=== PATIENT | male | born 1985 | race Caucasian/White ===

== ENCOUNTER 2017-11-10 07:03 | Emergency (ER) | payer BC ==
[2017-11-10 07:23] VITALS: BP 123/67; PULSE 77; TEMP 97.7; BMI 29.0
--- NOTE | 2017-11-10 07:40 | PDOC ---
History of Present Illness - General History Source: Patient Exam Limitations: No Limitations - History of Present Illness Initial Comments: 11/10/17 08:08 Patient is a 32-year-old male with no past medical history who presents emergency department today after being bit by a neighbor's dog this morning. Patient was bit on the left lower leg and presents with a 1 inch laceration. Bleeding is controlled. He states that the neighbor said the dog's are vaccinated however he is not friendly with the neighbor. Patient does not remember date of last tetanus shot. Denies fevers, chills, numbness and tingling to the extremity, weakness of the extremity. <Louisa Donovan - Last Filed: 11/11/17 11:51> <Sherrie Thomas - Last Filed: 11/15/17 21:54> - General Chief Complaint: Bite Stated Complaint: DOG BITE L LEG Time Seen by Provider: 11/10/17 07:37 Past History - Travel Traveled outside of the country in the last 30 days: No Close contact w/someone who was outside of country & ill: No - Past Medical History COPD: No - Suicide/Smoking/Psychosocial Hx Smoking Status: No Smoking History: Never smoked Have you smoked in the past 12 months: No Number of Cigarettes Smoked Daily: 0 Information on smoking cessation initiated: No Hx Alcohol Use: No Drug/Substance Use Hx: No Substance Use Type: None <Louisa Donovan - Last Filed: 11/11/17 11:51> <Sherrie Thomas - Last Filed: 11/15/17 21:54> - Past Medical History Allergies/Adverse Reactions: Allergies Allergy/AdvReac Type Severity Reaction Status Date / Time No Known Allergies Allergy Verified 11/13/17 17:25 Home Medications: Ambulatory Orders Amox-Tr/K Cl [Augmentin - 875Mg Tablet] 1 tab PO BID #14 tablet 11/10/17 Review of Systems - Review of Systems Able to Perform ROS?: Yes Is the patient limited Israeli proficient: No Constitutional: No: Chills, Fever, Weakness HEENTM: No: Eye Pain, Throat Pain, Throat Swelling, Mouth Swelling Respiratory: No: Cough, Shortness of Breath, Wheezing Cardiac (ROS): No: Chest Pain, Edema, Lightheadedness, Chest Tightness ABD/GI: No: Diarrhea, Nausea, Vomiting, Abdominal cramping Musculoskeletal: No: Joint Swelling, Muscle Pain, Muscle Weakness Integumentary: Yes: Other (laceration to L leg). No: Bruising, Erythema, Rash Neurological: No: Numbness, Paresthesia, Tingling, Weakness Hematologic/Lymphatic: No: Anemia, Easy Bleeding, Easy Bruising, Bleeding Diathesis All Other Systems: Reviewed and Negative <Louisa Donovan - Last Filed: 11/11/17 11:51> *Physical Exam - Vital Signs Last Vital Signs Temp Pulse Resp BP Pulse Ox 97.7 F 77 18 123/67 100 11/10/17 07:17 11/10/17 07:17 11/10/17 07:17 11/10/17 07:17 11/10/17 07:17 - Physical Exam General Appearance: Yes: Nourished, Appropriately Dressed. No: Apparent Distress HEENT: positive: EOMI, ARTHUR, Normal Voice Neck: positive: Trachea midline, Supple. negative: Tender, Rigid, Lymphadenopathy (R), Lymphadenopathy (L) Respiratory/Chest: positive: Lungs Clear, Normal Breath Sounds. negative: Respiratory Distress, Accessory Muscle Use Cardiovascular: positive: Regular Rhythm, Regular Rate, S1, S2 (present). negative: Murmur Extremity: positive: Normal Capillary Refill, Normal Range of Motion, Calf Tenderness (Medial tenderness d/t dog bite). negative: Tender Integumentary: positive: Normal Color, Dry, Warm, Other (1 inch laceration to L lower extremity) <Louisa Donovan - Last Filed: 11/11/17 11:51> - Vital Signs Last Vital Signs Temp Pulse Resp BP Pulse Ox 97.7 F 77 18 123/67 100 11/10/17 07:17 11/10/17 07:17 11/10/17 07:17 11/10/17 07:17 11/10/17 07:17 <Sherrie Thomas - Last Filed: 11/15/17 21:54> Procedures - Laceration/Wound Repair Left Anterior Leg Wound Length: 2.6 to 5.0 cm Wound Explored: clean Wound's Depth, Shape: linear Irrigated w/ Saline: Yes Betadine Prep: No Anesthesia: 1% Lidocaine Amount of Anesthetic (ccs): 4 Wound Debrided: minimal Wound Repaired With: Sutures Suture Size/Type: 5:0, nylon Number of Sutures: 1 (running) Layer Closure: No Splint Applied: No Sling Applied: No Progress: patient tolerated procedure well, wound subsequently hemostatic <Sherrie Thomas - Last Filed: 11/15/17 21:54> ED Treatment Course - Medications Given in the ED: ED Medications Discontinued Medications Generic Name Dose Route Start Last Admin Trade Name Kusum PRN Reason Stop Dose Admin Diphtheria/Tetanus/Acell Pertussis 0.5 ml 11/10/17 08:04 11/10/17 08:50 Boostrix - IM 11/10/17 08:05 0.5 ml .ONCE ONE Administration Rabies Immune Globulin 11.1 ml 11/10/17 09:08 11/10/17 10:16 Hyperrab S/D - 0.1333 ml/kg (11.1 ml) 11/10/17 09:09 11.1 ml IM Administration ONCE ONE Protocol Rabies Vaccine 2.5 unit 11/10/17 09:13 11/10/17 10:17 Rabavert Rabies Vaccine IM 11/10/17 09:14 2.5 unit .ONCE ONE Administration <Sherrie Thomas - Last Filed: 11/15/17 21:54> Medical Decision Making - Medical Decision Making 11/10/17 08:12 Patient is a 32-year-old male with no past medical history presents emergency Department status post dog bite of unknown vaccination status. Patient is currently tried to get in touch with the neighbor to find out the dog's official vaccination status. We'll update tetanus shot at this time. Laceration will require sutures at this time. We'll place patient on antibiotics (augmentin ) at discharge. 11/10/17 11:03 Unable to obtain vaccination status of the dog that bit the pt. Will start rabies series at this time. Stitches placed by Dr. Joseph. One running simple interrupted stitch placed. See procedure note. Return schedule given and pt told to have wound checked as well at day 3. Return precautions given. Pt. understands all dc instructions and all questions were answered. <Louisa Donovan - Last Filed: 11/11/17 11:51> *DC/Admit/Observation/Transfer - Discharge Dispostion Decision to Admit order: No <Louisa Donovan - Last Filed: 11/11/17 11:51> <Sherrie Thomas - Last Filed: 11/15/17 21:54> Diagnosis at time of Disposition: Laceration Dog bite Qualifiers: Encounter type: initial encounter Qualified Code(s): W54.0XXA - Bitten by dog, initial encounter - Discharge Dispostion Disposition: HOME Condition at time of disposition: Stable - Prescriptions Prescriptions: Amox-Tr/K Cl [Augmentin - 875Mg Tablet] 1 tab PO BID #14 tablet - Patient Instructions Printed Discharge Instructions: How to Care for a Domestic Animal Bite, DI for Animal Bites Additional Instructions: Your bit by a dog today. The rabies series was started. Please keep the area clean and dry. You may wash the leg with gentle soap and water, pat dry. You had stitches placed today. Please return in 3 days for your next rabies shot as well as a wound check. You will most likely need your stitches removed in 7-10 days. Please take the Augmentin as prescribed. Finish all the antibiotics even if you feel better. Your tetanus shot was also updated today. He may take Tylenol or Motrin as needed for pain. Please fall dosing instructions on the bottle. Follow-up with her primary care doctor Return to emergency department sooner if you have fevers, chills, purulent discharge from the wound site, or have any changes in your symptoms. - Post Discharge Activity Forms/Work/School Notes: Back to Work, Rabies Vaccination F/U Karli.
[2017-11-10] MEDS ORDERED: DIPHTH,PERTUSS(ACELL),TET 0.5 ML DISP.SYRIN IM ONE (08:04)
[2017-11-10] MEDS ORDERED: RABIES IMMUNE GLOBULIN 300 UNITS/2 ML VIAL IM ONE (09:08)
[2017-11-10] MEDS ORDERED: RABIES IMMUNE GLOBULIN 300 UNITS/2 ML VIAL ONE (09:12)
[2017-11-10] MEDS ORDERED: RABIES VACCINE (PCEC)/PF 2.5 UNIT/VIAL IM ONE (09:13)
== END 2017-11-10 12:15 | disposition home or self-care (01) ==
LOC: JER 07:03
PROC: 0HQLXZZ Repair Left Lower Leg Skin, External Approach (ICD-10-PCS; principal; 2017-11-10)
PROC: 3E0234Z Introduction of Serum, Toxoid and Vaccine into Muscle, Percutaneous Approach (ICD-10-PCS; 2017-11-10)
PROC: 3E0234Z Introduction of Serum, Toxoid and Vaccine into Muscle, Percutaneous Approach (ICD-10-PCS; 2017-11-10)
PROC: 3E0234Z Introduction of Serum, Toxoid and Vaccine into Muscle, Percutaneous Approach (ICD-10-PCS; 2017-11-10)
DX: S81.852A Open bite, left lower leg, initial encounter (principal); W54.0XXA Bitten by dog, initial encounter; Y93.89 Activity, other specified; Y92.488 Other paved roadways as the place of occurrence of the external cause; Y99.8 Other external cause status
CPT/HCPCS: 90375; 90675; 90715; 99283-25

== ENCOUNTER 2017-11-13 17:09 | Emergency (ER) | payer BC ==
--- NOTE | 2017-11-13 17:26 | PDOC ---
Rapid Medical Evaluation Time Seen by Provider: 11/13/17 17:25 Medical Evaluation: Allergies Allergy/AdvReac Type Severity Reaction Status Date / Time No Known Allergies Allergy Verified 11/10/17 07:17 I have performed a brief in-person evaluation of this patient. The patient presents with a chief complaint of: here for 2nd rabies shot Pertinent physical exam findings: none I have ordered the following: nothing The patient will proceed to the ED for further evaluation. Discharge Disposition - Diagnosis Rabies, need for prophylactic vaccination against - Referrals - Patient Instructions - Post Discharge Activity
[2017-11-13 17:29] VITALS: BP 135/80; PULSE 72; TEMP 98.7; BMI 29.0
[2017-11-13] MEDS ORDERED: RABIES VACCINE (PCEC)/PF 2.5 UNIT/VIAL IM ONE (18:08)
--- NOTE | 2017-11-13 18:13 | PDOC ---
*Physical Exam - Vital Signs Last Vital Signs Temp Pulse Resp BP Pulse Ox 98.7 F 72 15 135/80 98 11/13/17 17:25 11/13/17 17:25 11/13/17 17:25 11/13/17 17:25 11/13/17 17:25 - Physical Exam General Appearance: Yes: Nourished, Appropriately Dressed HEENT: positive: Normal Voice Respiratory/Chest: positive: Respiratory Distress Medical Decision Making - Medical Decision Making Patient is here for his second dose of rabies prophylaxis. Vexing was ordered today. 11/13/17 18:09 *DC/Admit/Observation/Transfer Diagnosis at time of Disposition: Rabies, need for prophylactic vaccination against - Discharge Dispostion Disposition: HOME Condition at time of disposition: Stable Decision to Admit order: No - Referrals Referrals: Jazzy Darnell MD [Primary Care Provider] - - Patient Instructions Additional Instructions: Return to the emergency room on 11/17/2017 for your third injection of rabies vaccination - Post Discharge Activity
== END 2017-11-13 18:20 | disposition home or self-care (01) ==
LOC: JERFT 17:09
PROC: 3E0234Z Introduction of Serum, Toxoid and Vaccine into Muscle, Percutaneous Approach (ICD-10-PCS; principal; 2017-11-13)
DX: Z20.3 Contact with and (suspected) exposure to rabies (principal)
CPT/HCPCS: 90675; 99281-25

== ENCOUNTER 2017-11-17 09:37 | Emergency (ER) | payer BC ==
[2017-11-17 09:50] VITALS: BP 142/84; PULSE 67; TEMP 98.6; BMI 27.3
[2017-11-17] MEDS ORDERED: RABIES VACCINE (PCEC)/PF 2.5 UNIT/VIAL IM ONE (10:03)
--- NOTE | 2017-11-17 10:03 | PDOC ---
History of Present Illness - General Chief Complaint: Revisit,Rabies Injection Stated Complaint: RABIES SHOT Time Seen by Provider: 11/17/17 09:55 History Source: Patient Exam Limitations: No Limitations - History of Present Illness Initial Comments: 11/17/17 10:07 Patient is a 32-year-old male who presents for his day 7 rabies injection and wound check to his left leg. States he has not finished his abx yet. Also states that he noticed some discharge from the bite site yesterday. None today. Denies fevers, chills, pain to the area, nausea and vomiting. Past History - Travel Traveled outside of the country in the last 30 days: No Close contact w/someone who was outside of country & ill: No - Past Medical History Allergies/Adverse Reactions: Allergies Allergy/AdvReac Type Severity Reaction Status Date / Time No Known Allergies Allergy Verified 11/17/17 09:47 Home Medications: Ambulatory Orders Amox-Tr/K Cl [Augmentin - 875Mg Tablet] 1 tab PO BID #14 tablet 11/10/17 COPD: No Other medical history: DENIES. - Immunization History Immunization Up to Date: Yes - Suicide/Smoking/Psychosocial Hx Smoking Status: No Smoking History: Never smoked Have you smoked in the past 12 months: No Number of Cigarettes Smoked Daily: 0 Hx Alcohol Use: No Drug/Substance Use Hx: No Substance Use Type: None Review of Systems - Review of Systems Able to Perform ROS?: Yes Comments:: 11/17/17 10:02 CONSTITUTIONAL: Absent: fever, chills, diaphoresis, generalized weakness, malaise, loss of appetite MUSCULOSKELETAL: Absent: myalgia, arthralgia, joint swelling SKIN: Present: stitches in place, drainage from wound Absent: rash, itching, pallor NEUROLOGIC: Absent: headache, focal weakness or paresthesias, dizziness, unsteady gait, seizure, mental status changes, bladder or bowel incontinence PSYCHIATRIC: Absent: anxiety, depression, suicidal or homicidal ideation, hallucinations. Is the patient limited Arabic proficient: No *Physical Exam - Vital Signs Last Vital Signs Temp Pulse Resp BP Pulse Ox 98.6 F 67 19 142/84 99 11/17/17 09:47 11/17/17 09:47 11/17/17 09:47 11/17/17 09:47 11/17/17 09:47 - Physical Exam Comments: 11/17/17 10:02 GENERAL: [The patient is awake, alert, and fully oriented, in no acute distress. ] HEAD: [Normal with no signs of trauma.] EYES: [Pupils equal, round and reactive to light, extraocular movements intact, sclera anicteric, conjunctiva clear.] EXTREMITIES: [One running stitch intact to the LLE. No drainage noted from the site today. Minimal erythmea surrounding the stitches. Wound marked.Normal range of motion, no edema.] NEUROLOGICAL: [Normal speech, normal gait.] PSYCH: [Normal mood, normal affect.] SKIN: [Warm, Dry, normal turgor, no rashes or lesions noted.] Medical Decision Making - Medical Decision Making 11/17/17 10:51 Patient is a 32-year-old male with no past medical history who presents to the emergency department today for his third rabies vaccination. Patient states he was never able to obtain the records for the neighbor's dog. Wound evaluated. Still requiring stitch, as wound is still fairly open. Wound with minimal erythema surrounding stitch. Wound is outlined at this time. Instructed patient to watch it and make sure that the redness does not spread or get worse. Strict return precautions given. Patient understands that if anything were to change between now and next week he should come to the emergency department. Patient her symptoms all discharge instructions and all questions were answered. *DC/Admit/Observation/Transfer Diagnosis at time of Disposition: Rabies, need for prophylactic vaccination against, Visit for wound check - Discharge Dispostion Disposition: HOME Condition at time of disposition: Stable Decision to Admit order: No - Referrals Referrals: Jazzy Darnell MD [Primary Care Provider] - - Patient Instructions Printed Discharge Instructions: DI for Rabies Vaccine Additional Instructions: Return in one week for your last rabies shot and for suture removal. Continue to monitor the wound for signs of infection including yellow/green drainage, increasing redness outside the pen melanie Finish your augmentin as previously prescribed. You may do warm water soaks to the area. Return to the ED sooner if you develop fevers, wound infection or if you develop any new or worsening symptoms - Post Discharge Activity Forms/Work/School Notes: Back to Work
== END 2017-11-17 10:51 | disposition home or self-care (01) ==
LOC: JERFT 09:37
PROC: 3E0234Z Introduction of Serum, Toxoid and Vaccine into Muscle, Percutaneous Approach (ICD-10-PCS; principal; 2017-11-17)
DX: Z20.3 Contact with and (suspected) exposure to rabies (principal)
CPT/HCPCS: 90675; 99281-25

== ENCOUNTER 2017-11-24 09:18 | Emergency (ER) | payer BC ==
[2017-11-24 09:33] VITALS: BP 141/83; PULSE 84; TEMP 98.6; BMI 27.7
[2017-11-24] MEDS ORDERED: RABIES VACCINE (PCEC)/PF 2.5 UNIT/VIAL IM ONE (09:35)
--- NOTE | 2017-11-24 09:41 | PDOC ---
History of Present Illness - General Chief Complaint: Revisit,Rabies Injection Stated Complaint: REVISIT, RABIES INJECTION History Source: Patient Exam Limitations: No Limitations - History of Present Illness Initial Comments: 11/24/17 09:49 Best Contact: PCP:Dr. Darnell Pmhx: N/A Pshx:2008: Deviated septum Allergies: NKDA 32-year-old male presents to the ER for his fourth rabies vaccination after getting bit by his neighbor's dog on 11/10/2017. Patient had his left medial proximal lower leg sutured 14 days ago and is also here for suture removal. Patient denies any redness, discharge, pain, fever or chills. Patient states he has not had a rabies vaccination reaction from his previous injections. Past History - Past Medical History Allergies/Adverse Reactions: Allergies Allergy/AdvReac Type Severity Reaction Status Date / Time No Known Allergies Allergy Verified 11/24/17 09:30 Home Medications: Ambulatory Orders Amox-Tr/K Cl [Augmentin - 875Mg Tablet] 1 tab PO BID #14 tablet 11/10/17 COPD: No DVT: No - Immunization History Immunization Up to Date: Yes - Suicide/Smoking/Psychosocial Hx Smoking Status: No Smoking History: Never smoked Have you smoked in the past 12 months: No Number of Cigarettes Smoked Daily: 0 Information on smoking cessation initiated: No Hx Alcohol Use: No Drug/Substance Use Hx: No Substance Use Type: None Review of Systems - Review of Systems Able to Perform ROS?: Yes Comments:: 11/24/17 09:51 CONSTITUTIONAL: Absent: fever, chills, diaphoresis, generalized weakness, malaise, loss of appetite MUSCULOSKELETAL: Absent: myalgia, arthralgia, joint swelling SKIN: Absent: rash, itching, pallor HEMATOLOGIC/IMMUNOLOGIC: Is the patient limited Armenian proficient: No *Physical Exam - Vital Signs Last Vital Signs Temp Pulse Resp BP Pulse Ox 98.6 F 84 18 141/83 100 11/24/17 09:31 11/24/17 09:31 11/24/17 09:31 11/24/17 09:31 11/24/17 09:31 - Physical Exam Comments: 11/24/17 09:51 GENERAL: Well developed, well nourished. Awake and alert. No acute distress. SKIN: Warm and dry. Normal capillary refill. No rashes. No jaundice. Left proximal medial lower leg 5 finger of 8 nylon sutures Removed Moderate Sedation - Procedure Monitoring Vital Signs: Vital Signs Temp Pulse Resp BP Pulse Ox 98.6 F 84 18 141/83 100 11/24/17 09:31 11/24/17 09:31 11/24/17 09:31 11/24/17 09:31 11/24/17 09:31 *DC/Admit/Observation/Transfer Diagnosis at time of Disposition: Visit for suture removal, Visit for wound check, Rabies, need for prophylactic vaccination against - Discharge Dispostion Disposition: HOME Condition at time of disposition: Stable Decision to Admit order: No - Referrals - Patient Instructions Printed Discharge Instructions: DI for Rabies Vaccine Additional Instructions: Apply bacitracin to the incision daily You've received her last rabies vaccination today Any any signs of infection to the injection site or signs of an ALLERGIC reaction such as shortness of breath, chest pain, please return back to the emergency department - Post Discharge Activity
== END 2017-11-24 09:54 | disposition home or self-care (01) ==
LOC: JERFT 09:18
PROC: 3E0234Z Introduction of Serum, Toxoid and Vaccine into Muscle, Percutaneous Approach (ICD-10-PCS; principal; 2017-11-24)
DX: Z20.3 Contact with and (suspected) exposure to rabies (principal)
CPT/HCPCS: 90675; 99281-25